=== PATIENT | female | born 1960 | race Two or more races ===

== ENCOUNTER → 2017-09-24 | Outpatient (CLI) | payer OTHER ==
[~2017-09-24] VITALS: Ht 152.4 cm; Wt 74.4 kg
[~2017-09-24] MED LIST: FLONASE16 GM NS; SYNTHROID50 MCG; SYNTHROID50 MCG PO; SYNTHROID75 MCG; SYNTHROID75 MCG PO; TESSALON PERLE100 MG PO; ZYRTEC10 M3 PO
== END | disposition home or self-care (01) ==
LOC: PPHC 15:58
DX: Z01.89 Encounter for other specified special examinations (principal)

== ENCOUNTER 2018-06-07 10:26 | Outpatient (CLI) | payer OTHER | END 2018-06-07 10:35 | disposition home or self-care (01) | LOC: LAB 10:26 | DX: E03.8 Other specified hypothyroidism (principal); Z13.1 Encounter for screening for diabetes mellitus; Z12.11 Encounter for screening for malignant neoplasm of colon; I95.89 Other hypotension; M35.00 Sjogren syndrome, unspecified ==

== ENCOUNTER → 2018-06-09 09:13 | Outpatient (CLI) | payer OTHER | END | disposition home or self-care (01) | LOC: LAB 09:13 | DX: E03.8 Other specified hypothyroidism (principal); Z13.1 Encounter for screening for diabetes mellitus; Z12.11 Encounter for screening for malignant neoplasm of colon; I95.89 Other hypotension ==

== ENCOUNTER 2018-06-11 08:07 | Outpatient (CLI) | payer OTHER | END 2018-06-11 08:19 | disposition home or self-care (01) | LOC: MAMO-SONO 08:07 | DX: Z12.31 Encounter for screening mammogram for malignant neoplasm of breast (principal); N60.11 Diffuse cystic mastopathy of right breast; N60.12 Diffuse cystic mastopathy of left breast; E03.8 Other specified hypothyroidism; E04.2 Nontoxic multinodular goiter ==

== ENCOUNTER → 2018-06-27 06:19 | Outpatient (CLI) | payer OTHER | END | disposition home or self-care (01) | LOC: LAB 06:19 | DX: K74.3 Primary biliary cirrhosis (principal) ==

== ENCOUNTER 2018-07-17 08:09 | Outpatient (CLI) | payer OTHER | END 2018-07-17 14:58 | disposition home or self-care (01) | LOC: SONOGRAMA 08:09 | DX: E04.8 Other specified nontoxic goiter (principal) ==

== ENCOUNTER 2018-08-29 06:13 | Outpatient (CLI) | payer OTHER | END 2018-08-29 06:36 | disposition home or self-care (01) | LOC: LAB 06:13 → NUCLEAR 09:00 | DX: K74.3 Primary biliary cirrhosis (principal) ==

== ENCOUNTER 2018-08-29 07:18 | Outpatient (CLI) | payer OTHER | END 2018-08-29 10:01 | disposition home or self-care (01) | LOC: NUCLEAR 07:18 | DX: M25.50 Pain in unspecified joint (principal) | CPT/HCPCS: 78306; A9503 ==

== ENCOUNTER 2018-10-02 13:45 | Outpatient (CLI) | payer OTHER | END 2018-10-02 14:00 | disposition home or self-care (01) | LOC: NUCLEAR 13:45 | DX: M81.0 Age-related osteoporosis without current pathological fracture (principal) ==

== ENCOUNTER 2018-11-15 09:49 | Outpatient (CLI) | payer OTHER | END 2018-11-15 13:03 | disposition home or self-care (01) | LOC: LAB 09:49 | DX: R74.8 Abnormal levels of other serum enzymes (principal) ==

== ENCOUNTER 2018-12-03 12:58 | Outpatient (CLI) | payer OTHER | END 2018-12-03 13:02 | disposition home or self-care (01) | LOC: SONOGRAMA 12:58 | DX: R10.9 Unspecified abdominal pain (principal) ==

== ENCOUNTER 2019-01-21 08:51 | Outpatient (CLI) | payer OTHER | END 2019-01-21 09:30 | disposition home or self-care (01) | LOC: TOM 08:51 | DX: R74.8 Abnormal levels of other serum enzymes (principal); R10.84 Generalized abdominal pain ==

== ENCOUNTER 2019-01-22 09:22 | Outpatient (CLI) | payer OTHER | END 2019-01-22 09:25 | disposition home or self-care (01) | LOC: RAD 501 09:22 | DX: M16.11 Unilateral primary osteoarthritis, right hip (principal); M16.12 Unilateral primary osteoarthritis, left hip ==

== ENCOUNTER 2019-02-23 08:54 | Emergency (ER) | payer OTHER ==
[~2019-02-23] VITALS: Ht 154.9 cm; Wt 72.6 kg
== END 2019-02-23 10:28 | disposition home or self-care (01) ==
LOC: ER 08:54
DX: S61.242A Puncture wound with foreign body of right middle finger without damage to nail, initial encounter (principal); W46.0XXA Contact with hypodermic needle, initial encounter; Y93.89 Activity, other specified; Y92.69 Other specified industrial and construction area as the place of occurrence of the external cause; Y99.8 Other external cause status

== ENCOUNTER 2019-06-05 06:15 | Outpatient (CLI) | payer OTHER | END 2019-06-05 06:33 | disposition home or self-care (01) | LOC: LAB 06:15 | DX: M35.00 Sjogren syndrome, unspecified (principal) ==

== ENCOUNTER 2019-07-01 14:43 | Outpatient (CLI) | payer OTHER | END 2019-07-01 15:40 | disposition home or self-care (01) | LOC: SONOGRAMA 14:43 | DX: N64.4 Mastodynia (principal); E04.1 Nontoxic single thyroid nodule ==

== ENCOUNTER 2019-07-02 08:36 | Outpatient (CLI) | payer OTHER | END 2019-07-02 09:08 | disposition home or self-care (01) | LOC: MAMO-SONO 08:36 | DX: Z12.31 Encounter for screening mammogram for malignant neoplasm of breast (principal); Z87.898 Personal history of other specified conditions; N64.4 Mastodynia ==

== ENCOUNTER → 2020-02-24 08:31 | Outpatient (CLI) | payer OTHER | END | disposition home or self-care (01) | LOC: LAB 08:31 | DX: Z11.1 Encounter for screening for respiratory tuberculosis (principal) ==

== ENCOUNTER 2020-05-23 10:37 | Outpatient (CLI) | payer OTHER | END 2020-05-23 10:54 | disposition home or self-care (01) | LOC: MAMO-SONO 10:37 | PROVIDERS: ATTEND Surgery | DX: Z12.31 Encounter for screening mammogram for malignant neoplasm of breast (principal); N60.11 Diffuse cystic mastopathy of right breast; N60.12 Diffuse cystic mastopathy of left breast; E04.1 Nontoxic single thyroid nodule; R10.2 Pelvic and perineal pain ==

== ENCOUNTER 2020-05-26 10:00 | Outpatient (CLI) | payer OTHER | END 2020-05-26 15:50 | disposition home or self-care (01) | LOC: PPH VACUNA 10:00 | DX: Z23 Encounter for immunization (principal) ==

== ENCOUNTER 2020-07-22 08:51 | Outpatient (CLI) | payer OTHER | END 2020-07-22 15:00 | disposition home or self-care (01) | LOC: LAB 08:51 | PROVIDERS: ATTEND Surgery | DX: I10 Essential (primary) hypertension (principal); D64.89 Other specified anemias; D68.8 Other specified coagulation defects; N39.0 Urinary tract infection, site not specified; E11.9 Type 2 diabetes mellitus without complications; E04.1 Nontoxic single thyroid nodule; E78.2 Mixed hyperlipidemia; N91.2 Amenorrhea, unspecified ==

== ENCOUNTER → 2020-08-23 08:08 | Outpatient (CLI) | payer OTHER | END | disposition home or self-care (01) | LOC: PPH VACUNA 08:08 | DX: Z23 Encounter for immunization (principal) ==

== ENCOUNTER 2020-08-23 08:40 | Outpatient (CLI) | payer OTHER | END 2020-08-23 08:45 | disposition home or self-care (01) | LOC: LAB 08:40 | PROVIDERS: ATTEND Internal Medicine Cardiovascular Disease | DX: E03.8 Other specified hypothyroidism (principal); M35.00 Sjogren syndrome, unspecified; D89.1 Cryoglobulinemia ==

== ENCOUNTER 2020-09-12 10:28 | Outpatient (CLI) | payer OTHER | END 2020-09-12 10:32 | disposition home or self-care (01) | LOC: LAB 10:28 | DX: U07.1 COVID-19 (principal) ==

== ENCOUNTER 2020-12-05 06:22 | Outpatient (CLI) | payer OTHER | END 2020-12-05 06:27 | disposition home or self-care (01) | LOC: LAB 06:22 | PROVIDERS: ATTEND Radiology Diagnostic Radiology | DX: B02.9 Zoster without complications (principal) ==

== ENCOUNTER → 2020-12-30 06:22 | Outpatient (CLI) | payer OTHER | END | disposition home or self-care (01) | LOC: LAB 06:22 | PROVIDERS: ATTEND Internal Medicine Cardiovascular Disease | DX: I10 Essential (primary) hypertension (principal); E11.9 Type 2 diabetes mellitus without complications; E03.8 Other specified hypothyroidism; E78.2 Mixed hyperlipidemia ==

== ENCOUNTER 2021-05-29 09:37 | Outpatient (CLI) | payer OTHER | END 2021-05-29 14:07 | disposition home or self-care (01) | LOC: RAD 09:37 | PROVIDERS: ATTEND Radiology Diagnostic Radiology | DX: M25.462 Effusion, left knee (principal); M25.562 Pain in left knee; M25.561 Pain in right knee ==

== ENCOUNTER 2021-05-31 10:29 | Outpatient (CLI) | payer OTHER | END 2021-05-31 10:36 | disposition home or self-care (01) | LOC: MRI 10:29 | PROVIDERS: ATTEND Surgery | DX: M25.462 Effusion, left knee (principal); M17.12 Unilateral primary osteoarthritis, left knee | CPT/HCPCS: 73721 ==

== ENCOUNTER 2021-06-01 08:00 | Outpatient (CLI) | payer OTHER | END 2021-06-01 08:30 | disposition home or self-care (01) | LOC: PPH VACUNA 08:00 | PROVIDERS: ATTEND Emergency Medicine Pediatric Emergency Medicine | DX: Z23 Encounter for immunization (principal) ==

== ENCOUNTER 2021-06-06 08:00 | Outpatient (CLI) | payer OTHER | END 2021-06-06 08:30 | disposition home or self-care (01) | LOC: PPH VACUNA 08:00 | PROVIDERS: ATTEND Emergency Medicine Pediatric Emergency Medicine | DX: Z23 Encounter for immunization (principal) ==

== ENCOUNTER 2021-07-11 08:09 | Outpatient (CLI) | payer OTHER | END 2021-07-11 08:19 | disposition home or self-care (01) | LOC: MAMO-SONO 08:09 | PROVIDERS: ATTEND Internal Medicine Cardiovascular Disease | DX: R92.0 Mammographic microcalcification found on diagnostic imaging of breast (principal); E03.8 Other specified hypothyroidism; R10.84 Generalized abdominal pain; N64.89 Other specified disorders of breast; Z12.31 Encounter for screening mammogram for malignant neoplasm of breast ==

== ENCOUNTER 2021-09-11 08:45 | Outpatient (CLI) | payer OTHER | END 2021-09-11 15:00 | disposition home or self-care (01) | LOC: LAB 08:45 | PROVIDERS: ATTEND Internal Medicine Cardiovascular Disease | DX: E03.8 Other specified hypothyroidism (principal); E78.2 Mixed hyperlipidemia; E11.9 Type 2 diabetes mellitus without complications; I10 Essential (primary) hypertension ==

== ENCOUNTER 2021-11-21 09:02 | Outpatient (CLI) | payer OTHER | END 2021-11-21 09:08 | disposition home or self-care (01) | LOC: LAB 09:02 | PROVIDERS: ATTEND Internal Medicine Cardiovascular Disease | DX: N39.0 Urinary tract infection, site not specified (principal) ==

== ENCOUNTER 2021-12-25 08:00 | Outpatient (CLI) | payer OTHER | END 2021-12-25 08:30 | disposition home or self-care (01) | LOC: PPH VACUNA 08:00 | PROVIDERS: ATTEND Emergency Medicine Pediatric Emergency Medicine | DX: Z23 Encounter for immunization (principal) ==

== ENCOUNTER 2022-07-12 12:11 | Outpatient (CLI) | payer OTHER | END 2022-07-12 12:12 | disposition home or self-care (01) | LOC: NUCLEAR 12:11 | PROVIDERS: ATTEND Internal Medicine Cardiovascular Disease | DX: M81.0 Age-related osteoporosis without current pathological fracture (principal) ==

== ENCOUNTER 2022-08-21 08:47 | Outpatient (CLI) | payer OTHER | END 2022-08-21 08:57 | disposition home or self-care (01) | LOC: PPH VACUNA 08:47 | PROVIDERS: ATTEND Emergency Medicine Pediatric Emergency Medicine | DX: Z23 Encounter for immunization (principal) ==

== ENCOUNTER 2022-12-17 09:44 | Outpatient (CLI) | payer OTHER | END 2022-12-17 09:45 | disposition home or self-care (01) | LOC: LAB 09:44 | PROVIDERS: ATTEND Internal Medicine Cardiovascular Disease | DX: E03.9 Hypothyroidism, unspecified (principal); I10 Essential (primary) hypertension; E11.9 Type 2 diabetes mellitus without complications; E78.5 Hyperlipidemia, unspecified; E55.9 Vitamin D deficiency, unspecified ==

== ENCOUNTER 2023-05-13 08:17 | Outpatient (CLI) | payer OTHER | END 2023-05-13 08:19 | disposition home or self-care (01) | LOC: LAB 08:17 | PROVIDERS: ATTEND Internal Medicine Cardiovascular Disease | DX: I10 Essential (primary) hypertension (principal); E11.9 Type 2 diabetes mellitus without complications; E03.9 Hypothyroidism, unspecified; E78.2 Mixed hyperlipidemia ==

== ENCOUNTER 2023-07-05 10:02 | Outpatient (CLI) | payer OTHER | END 2023-07-05 10:12 | disposition home or self-care (01) | LOC: MAMO-SONO 10:02 | PROVIDERS: ATTEND Internal Medicine Cardiovascular Disease | DX: N60.12 Diffuse cystic mastopathy of left breast (principal); N60.11 Diffuse cystic mastopathy of right breast; N80.9 Endometriosis, unspecified; E04.1 Nontoxic single thyroid nodule; Z12.31 Encounter for screening mammogram for malignant neoplasm of breast ==

== ENCOUNTER 2023-10-15 10:04 | Outpatient (CLI) | payer OTHER ==
[2023-10-15 10:41] LABS: URINE APPEARANCE Turbid; URINE BILIRRUBIN Negative (NEGATIVE); URINE BLOOD Negative; URINE COLOR Yellow; URINE GLUCOSE Negative (NEGATIVE); URINE LEUKOCYTE Small; URINE NITRATE Negative; URINE PROTEIN Negative (NEGATIVE)
[2023-10-15 10:43] LABS: URINE BACTERIA 1133.8 uL (0.0-1933); URINE EPITHELIAL CELLS 31.5 uL (0.0-38.8); URINE WBC 41.7 uL (0.0-23.2)
[2023-10-15 10:57] LABS: HEMATOCRIT 39.1 % (36.0-45.00); HEMOGLOBIN 13.3 g/dL (12.0-15.00); MEAN CELL VOLUME 89.6 fL (80.00-100.00); MEAN CORPUSCULAR HEMOGLOBIN 30.5 pg (27.00-32.0); MEAN CORPUSCULAR HGB CONC 34.1 g/dl (32.0-36.0); PLATELET COUNT 225 K/uL (150-450); RED BLOOD COUNT 4.36 M/uL (4.00-6.00); RED CELL DISTRIBUTION WIDTH 13.4 % (11.5-14.5)
[2023-10-15 11:58] LABS: ALBUMIN 3.8 gm/dL (3.4-5.0); BILIRUBIN TOTAL 0.44 mg/dL (0.3-1.2); CALCIUM 8.8 mg/dL (8.5-10.1); CHOL HDL RATIO 3.8 (0-5.0); CREATININE SERUM 0.69 mg/dL (0.55-1.02); GFR 85.65; GLOBULINA 3.7 G/DL (2.4-3.5); POTASSIUM 4.56 mEq/L (3.5-5.1); T4 TOTAL 5.99 UG/DL (4.8-13.9); TOTAL PROTEIN 7.5 gm/dL (6.4-8.2); TSH 3.7 uIU/mL (0.358-3.74)
[2023-10-15 14:08] LABS: T3 TOTAL 2.08 ng/ml (0.846-2.02); VITAMIN D3 25 HYDROXY 37.85 ng/ml (30-120)
== END 2023-10-15 10:30 | disposition home or self-care (01) ==
LOC: LAB 10:04
PROVIDERS: ATTEND Internal Medicine Cardiovascular Disease
DX: I10 Essential (primary) hypertension (principal); E11.9 Type 2 diabetes mellitus without complications; E03.9 Hypothyroidism, unspecified; E78.2 Mixed hyperlipidemia; E55.9 Vitamin D deficiency, unspecified

== ENCOUNTER 2024-03-10 09:24 | Outpatient (CLI) | payer OTHER ==
[2024-03-10 10:21] LABS: HEMATOCRIT 37.3 % (36.0-45.00); HEMOGLOBIN 12.9 g/dL (12.0-15.00); MEAN CELL VOLUME 88.5 fL (80.00-100.00); MEAN CORPUSCULAR HEMOGLOBIN 30.5 pg (27.00-32.0); MEAN CORPUSCULAR HGB CONC 34.5 g/dl (32.0-36.0); PLATELET COUNT 227 K/uL (150-450); RED BLOOD COUNT 4.22 M/uL (4.00-6.00); RED CELL DISTRIBUTION WIDTH 13.5 % (11.5-14.5)
[2024-03-10 11:09] LABS: URINE APPEARANCE Clear; URINE BILIRRUBIN Negative (NEGATIVE); URINE BLOOD Trace; URINE COLOR Yellow; URINE GLUCOSE Negative (NEGATIVE); URINE LEUKOCYTE Small; URINE NITRATE Negative; URINE PROTEIN Negative (NEGATIVE); URINE UROBILINOGEN 0.2 E.U./dl
[2024-03-10 11:13] LABS: URINE BACTERIA 768.4 uL (0.0-1933); URINE EPITHELIAL CELLS 40.1 uL (0.0-38.8); URINE RBC 16.4 uL (0.0-20.8); URINE WBC 54.1 uL (0.0-23.2)
[2024-03-10 11:29] LABS: CALCIUM 8.7 mg/dL (8.5-10.1); CHOL HDL RATIO 3.5 (0-5.0); CREATININE SERUM 0.5 mg/dL (0.55-1.02); GFR 124.21; POTASSIUM 4.19 mEq/L (3.5-5.1); T4 TOTAL 6.07 UG/DL (4.8-13.9); TSH 1.88 uIU/mL (0.358-3.74)
== END 2024-03-10 09:28 | disposition home or self-care (01) ==
LOC: LAB 09:24
PROVIDERS: ATTEND Internal Medicine Cardiovascular Disease
DX: E03.9 Hypothyroidism, unspecified (principal); I10 Essential (primary) hypertension; E11.9 Type 2 diabetes mellitus without complications; E78.2 Mixed hyperlipidemia; Z12.11 Encounter for screening for malignant neoplasm of colon

== ENCOUNTER → 2024-03-18 09:22 | Outpatient (CLI) | payer OTHER ==
[2024-03-18 10:44] LABS: ob NEGATIVE (NEGATIVE)
== END | disposition home or self-care (01) ==
LOC: LAB 09:22
PROVIDERS: ATTEND Internal Medicine Cardiovascular Disease
DX: E03.9 Hypothyroidism, unspecified (principal); E11.9 Type 2 diabetes mellitus without complications; E78.2 Mixed hyperlipidemia; Z12.11 Encounter for screening for malignant neoplasm of colon; I10 Essential (primary) hypertension

== ENCOUNTER 2024-06-30 09:00 | Outpatient (CLI) | payer OTHER | END 2024-06-30 09:06 | disposition home or self-care (01) | LOC: MAMO-SONO 09:00 | PROVIDERS: ATTEND Internal Medicine Cardiovascular Disease | DX: N60.11 Diffuse cystic mastopathy of right breast (principal); N60.12 Diffuse cystic mastopathy of left breast; Z12.31 Encounter for screening mammogram for malignant neoplasm of breast; N80.9 Endometriosis, unspecified; E03.9 Hypothyroidism, unspecified ==

== ENCOUNTER 2024-07-17 08:50 | Outpatient (CLI) | payer OTHER | END 2024-07-17 09:00 | disposition home or self-care (01) | LOC: PPH VACUNA 08:50 | PROVIDERS: ATTEND Emergency Medicine Pediatric Emergency Medicine | DX: Z23 Encounter for immunization (principal) ==

== ENCOUNTER 2025-07-07 09:13 | Outpatient (CLI) | payer OTHER | END 2025-07-07 09:17 | disposition home or self-care (01) | LOC: MAMO-SONO 09:13 | PROVIDERS: ATTEND Internal Medicine Cardiovascular Disease | DX: N60.11 Diffuse cystic mastopathy of right breast (principal); N60.12 Diffuse cystic mastopathy of left breast; Z12.31 Encounter for screening mammogram for malignant neoplasm of breast; N89.8 Other specified noninflammatory disorders of vagina; E03.4 Atrophy of thyroid (acquired) ==